=== PATIENT | male | born 1955 | race Caucasian/White ===

== ENCOUNTER 2019-06-29 14:24 | Inpatient (IN) | payer BC ==
[~2019-06-29] VITALS: Ht 177.8 cm; Wt 70.3 kg
[2019-06-29] MEDS ORDERED: ASPIRIN 325 MG TAB PO ONE (14:45)
--- NOTE | 2019-06-29 14:57 | NUR ---
Patient denies the use of home medications.
[2019-06-29 15:08] LABS: BASOPHILS % 0.3 % (0.0-1.0); EOSINOPHILS % 0.2 % (0.0-6.0); HEMATOCRIT 45.3 % (38.2-49.6); HEMOGLOBIN 15.4 g/dL (14.0-18.0); LYMPHOCYTES # (AUTO) 2.7 (1.0-3.2); MEAN CORPUSCULAR HEMOGLOBIN 32.6 pg (28-32); MONOCYTES # (AUTO) 1.2 (0.2-0.8); NEUTROPHILS # (AUTO) 9.3 (2.1-6.9); NEUTROPHILS % 70.2 % (38.7-80.0); PLATELET COUNT 245 x10e3/uL (140-360); RED BLOOD COUNT 4.72 x10e6/uL (4.3-5.7)
[2019-06-29 15:17] LABS: INR 0.88; PROTHROMBIN TIME 12.5 seconds (11.9-14.5)
[2019-06-29 15:18] LABS: PARTIAL THROMBOPLASTIN TIME 27.8 seconds (23.8-35.5)
[2019-06-29 15:28] LABS: ALANINE AMINOTRANSFERASE 15 IU/L (0-55); ALBUMIN/GLOBULIN RATIO 1.3 (0.8-2.0); ALKALINE PHOSPHATASE 76 IU/L (40-150); ANION GAP 14.3 mmol/L (8-16); BLOOD UREA NITROGEN 13 mg/dL (7-26); BUN/CREATININE RATIO 16 (6-25); CALCIUM 9.3 mg/dL (8.4-10.2); CARBON DIOXIDE 27 mmol/L (22-29); CHLORIDE 102 mmol/L (98-107); CREATINE KINASE 83 IU/L (30-200); CREATININE, SERUM 0.79 mg/dL (0.72-1.25); EST GLOMERULAR FILTRATION RATE > 60 ML/MIN (60-); GLUCOSE 98 mg/dL (74-118); POTASSIUM 4.3 mmol/L (3.5-5.1); SODIUM 139 mmol/L (136-145)
[2019-06-29 15:39] LABS: STREPTOCOCCUS GRP A ANTIGEN NEGATIVE (NEGATIVE)
[2019-06-29 15:41] LABS: B-TYPE NATRIURETIC PEPTIDE2 < 10.0 pg/mL (0-100)
[2019-06-29 15:48] LABS: THYROID STIMULATING HORMONE 1.025 uIU/mL (0.350-4.940)
[2019-06-29 15:50] LABS: INFLUENZAE A&B ANTIGEN (RAPID) NEGATIVE (NEGATIVE)
[2019-06-29] MEDS ORDERED: AZITHROMYCIN 500MG/NS 250 ML 250 ML IV SCH (16:30)
[2019-06-29] MEDS ORDERED: LIDOCAINE HCL 1% LOCAL INJ 20 ML VIAL ONE (16:55)
--- NOTE | 2019-06-29 17:00 | Diagnostic Imaging Report ---
EXAMINATION: CHEST SINGLE (PORTABLE) INDICATION: Cough COMPARISON: None FINDINGS: LINES/TUBES:EKG leads overlie the chest. LUNGS:The right lung is mildly hyperinflated. Partial collapse of the left lung. No focal consolidation or pulmonary edema. PLEURA:Large left lateral and basilar pneumothorax. No right pneumothorax. No pleural effusion. MEDIASTINUM:The cardiomediastinal silhouette appears normal in size and shape. BONES/SOFT TISSUES:No acute osseous injury. ABDOMEN:No free air under the diaphragm. IMPRESSION: Large left lateral and basilar pneumothorax. No focal pneumonia or pulmonary edema. The above findings were discussed with Dr. Talbot on 06/29/2019 4:54 PM, who responded indicating that the communication was understood. Patient will be brought to IR for chest tube placement. Signed by: Vivian Byrd MD on 06/29/2019 4:56 PM
[2019-06-29] MEDS: CEFTRIAXONE SOD 1 GM/NS 50 ML 50 ML IV SCH (17:05)
--- NOTE | 2019-06-29 17:10 | NUR ---
consent reviewed and signed for chest tube placement.
[2019-06-29] MEDS ORDERED: MORPHINE SULFATE INJ 4 MG/ML INJ 1ML IV PRN (17:45)
[2019-06-29] MEDS ORDERED: ONDANSETRON HCL INJ 2MG/ML 2ML 2 MG/ML VIAL IV PRN (17:45)
[2019-06-29] MEDS ORDERED: SODIUM CHLORIDE 0.9% 1000ML 1,000 ML IV ONE (17:45)
[2019-06-29] MEDS ORDERED: SODIUM CHLORIDE 0.9% 1000ML 1,000 ML IV STA (17:48)
[2019-06-29] MEDS ORDERED: ZOLPIDEM TARTRATE 5 MG TAB PO PRN (18:00)
[2019-06-29] MEDS: AZITHROMYCIN 500MG/NS 250 ML 250 ML IV SCH (18:30)
[2019-06-29] MEDS: IPRATROPIUM BROMIDE 0.02% 2.5 ML NEB NEB SCH (18:35)
[2019-06-29] MEDS: ALBUTEROL SULF 0.083% NEB SOLN 3 ML NEB NEB SCH ×2 (18:35→23:00)
--- NOTE | 2019-06-29 18:54 | NUR ---
report given to RAGHU Hinkle
--- NOTE | 2019-06-29 19:20 | Diagnostic Imaging Report ---
EXAMINATION: PLEURAL DRAINAGE W/ IMAGING INDICATION: Cough COMPARISON: None FINDINGS: LINES/TUBES:Status post placement of left chest tube. LUNGS:There is interval decrease in size of large left-sided pneumothorax and improvement in a aeration of the left lung. MEDIASTINUM:The cardiomediastinal silhouette appears normal in size and shape. BONES/SOFT TISSUES:No acute osseous injury. ABDOMEN:No free air under the diaphragm. IMPRESSION: Status post placement of left chest tube with interval decrease in size of large left-sided pneumothorax and improvement in aeration of the left lung. Signed by: Isaiah Chen MD on 06/29/2019 7:17 PM
--- NOTE | 2019-06-29 19:30 | Diagnostic Imaging Report ---
EXAM: CT Chest WITHOUT contrast INDICATION: PE PROTOCOL, COUGH, LEFT PNEUMOTHORAX COMPARISON: Chest x-ray dated 06/29/2019. TECHNIQUE: Chest was scanned utilizing a multidetector helical scanner from the lung apex through the level of the adrenal glands without administration of IV contrast. Absence of intravenous contrast decreases sensitivity for detection of lymphadenopathy and vascular pathology. Coronal and sagittal reformations were obtained. Routine protocol was performed. IV CONTRAST: None COMPLICATIONS: None RADIATION DOSE: Total DLP: 353.9 mGy*cm Estimated effective dose: (DLP x 0.014 x size factor) mSv CTDIvol has been reviewed. It is below the limits set by the Radiation Protocol Committee (RPC). FINDINGS: LINES/ TUBES: There is a left-sided chest tube in place. LUNGS AND PLEURA: Compared to prior chest x-ray there is marked decrease in size of left pneumothorax status post placement of left chest tube with a small residual left pneumothorax seen. Subsegmental atelectasis is seen in the lingula. There is linear atelectasis in the left lower lobe. Centrilobular emphysematous changes with multiple blebs are seen in the lungs predominantly upper lobes. There are biapical scarring. Minimal secretions seen in the trachea. HEART AND MEDIASTINUM: The thyroid gland is normal. No mediastinal, hilar or axillary lymphadenopathy. The heart is normal in size.. There is no pericardial effusion. UPPER ABDOMEN: Left upper pole renal cyst. BONES: There are degenerative changes in the thoracic spine. SOFT TISSUES: Left chest wall subcutaneous emphysema IMPRESSION: Status post placement of left chest tube with a small residual left pneumothorax seen. Centrilobular emphysematous changes with multiple blebs are seen in the lungs predominantly in upper lobes. Signed by: Isaiah Chen MD on 06/29/2019 7:27 PM
[2019-06-29 20:00] VITALS: BP 132/67
--- NOTE | 2019-06-29 20:00 | NUR ---
Patient came the unit with a chest tube to the left mid chest. connected to suction.
--- OUTSIDE RECORDS SUMMARY | 2019-06-29 21:14 | XMS REPORT ---
Author Author [facility] Address Unknown Phone Unavailable Care Team Providers Care Design Printer Balloon Name Role Phone AMBER CHAO Unavailable Unavailable Problems This patient has no known problems. Allergies, Adverse Reactions, Alerts This patient has no known allergies or adverse reactions. Medications This patient has no known medications. Results Test Description Test Time Test Comments Text Results Atomic Results Result Comments CT CHEST WO 2019-06-29 19:17:00 [facility] [address] [id number] Patient Name: MITZI SALGADO MR #: [id number] : 1955 Age/Sex: 64/M Req #: [id number] Adm Physician: AMBER CHAO MD Ordered by: WAYNE TOTH MD Report #: [id number] Location: [facility] Room/Bed: [address] [address] Procedure: [id number] CT/CT CHEST WO Exam Date: 06/29/19 Exam Time: 1750 REPORT STATUS: Signed EXAM: CT Chest WITHOUT contrast INDICATION: PE PROTOCOL, COUGH, LEFT PNEUMOTHORAX COMPARISON: Chest x-ray dated 06/29/2019. TECHNIQUE: Chest was scanned utilizing a multidetector helical scanner from the lung apex through the level of the adrenal glands without administration of IV contrast. Absence of intravenous contrast decreases sensitivity for detection of lymphadenopathy and vascular pathology. Coronal and sagittal reformations were obtained. Routine protocol was performed. IV CONTRAST: None COMPLICATIONS: None RADIATION DOSE: Total DLP: 353.9 mGy*cm Estimated effective dose: (DLP x 0.014 x size factor) mSv CTDIvol has been reviewed. It is below the limits set by the Radiation Protocol Committee (RPC). FINDINGS: LINES/ TUBES: There is a left-sided chest tube in place. LUNGS AND PLEURA: Compared to prior chest x-ray there is marked decrease in size of left pneumothorax status post placement of left chest tube with a small residual left pneumothorax seen. Subsegmental atelectasis is seen in the lingula. There is linear atelectasis in the left lower lobe. Centrilobular emphysematous changes with multiple blebs are seen in the lungs predominantly upper lobes. There are biapical scarring. Minimal secretions seen in the trachea. HEART AND MEDIASTINUM: The thyroid gland is normal. No mediastinal, hilar or axillary lymphadenopathy. The heart is normal in size.. There is no pericardial effusion. UPPER ABDOMEN: Left upper pole renal cyst. BONES: There are degenerative changes in the thoracic spine. SOFT TISSUES: Left chest wall subcutaneous emphysema IMPRESSION: Status post placement of left chest tube with a small residual left pneumothorax seen. Centrilobular emphysematous changes with multiple blebs are seen in the lungs predominantly in upper lobes. Signed by: Isaiah Silvestre MD on 06/29/2019 7:27 PM Dictated By: ISAIAH SILVESTRE MD 26 Transcribed By: KENDRA on 06/29/191926 COPY TO: WAYNE TOTH MD PLEURAL DRAINAGE W/ IMAGING 2019-06-29 19:13:00 [address] [address] Patient Name: MITZI SALGADO MR #: [id number] : 1955 Age/Sex: 64/M Req #: [id number] Adm Physician: AMBER CHAO MD Ordered by: WAYNE TOTH MD Report #: [id number] Location: [facility] Room/Bed: [address] [address] Procedure: [id number] IR/PLEURAL DRAINAGE W/ IMAGING Exam Date: Exam Time: REPORT STATUS: Signed EXAMINATION: PLEURAL DRAINAGE W/ IMAGING INDICATION: Cough COMPARISON: None FINDINGS: LINES/TUBES:Status post placement of left chest tube. LUNGS:There is interval decrease in size of large left-sided pneumothorax and improvement in a aeration of the left lung. MEDIASTINUM:The cardiomediastinal silhouette appears normal in size and shape. BONES/SOFT TISSUES:No acute osseous injury. ABDOMEN:No free air under the diaphragm. IMPRESSION: Status post placement of left chest tube with interval decrease in size of large left-sided pneumothorax and improvement in aeration of the left lung. Signed by: Isaiah Silvestre MD on 06/29/2019 7:17 PM Dictated By: ISAIAH SILVESTRE MD 16 Transcribed By: KENDRA on 06/29/191916 COPY TO: WAYNE TOTH MD CHEST SINGLE (PORTABLE) 2019-06-29 16:54:00 [address] [address] Patient Name: MITZI SALGADO MR #: [id number] : 1955 Age/Sex: 64/M Req #: [id number] Adm Physician: Ordered by: MELANIA DENNIS LEATHER CARVER Report #: [id number] Location: ER Room/Bed: Procedure: [id number] DX/CHEST SINGLE (PORTABLE) Exam Date: 06/29/19 Exam Time: 1620 REPORT STATUS: Signed EXAMINATION: CHEST SINGLE (PORTABLE) INDICA TION: Cough COMPARISON: None FINDINGS: LINES/TUBES:EKG leads overlie the chest. LUNGS:The right lung is mildly hyperinflated. Partial collapse of the left lung. No focal consolidation or pulmonary edema. PLEURA:Large left lateral and basilar pneumothorax. No right pneumothorax. No pleural effusion. MEDIASTINUM:The cardiomediastinal silhouette appears normal in size and shape. BONES/SOFT TISSUES:No acute osseous injury. ABDOMEN:No free air under the diaphragm. IMPRESSION: Large left lateral and basilar pneumothorax. No focal pneumonia or pulmonary edema. The above findings were discussed with Dr. Toth on 06/29/2019 4:54 PM, who responded indicating that the communication was understood. Patient will be brought to IR for chest tube placement. Signed by: Tomy Figueroa MD on 06/29/2019 4:56 PM Dictated By: TOMY FIGUEROA MD 55 Transcribed By: KENDRA on 06/29/191655 COPY TO: MELANIA DENNIS NP
--- NOTE | 2019-06-29 23:24 | Diagnostic Imaging Report ---
EXAMINATION: CHEST SINGLE (PORTABLE) COMPARISON: CT chest 06/29/2019, chest x-ray 1802 hours INDICATION: ^[id number] ^2245 ^POST CHEST TUBE DISCUSSION: Frontal view of the chest obtained at 2254 hours. HEART AND MEDIASTINUM: The cardiomediastinal silhouette is unremarkable. LINES: Pigtail catheter in the base of the left chest is now located at the left ventricular apex. LUNGS: Diffuse hyperinflation consistent with emphysema. No pneumonia or pulmonary edema. PLEURA: Left anterior and basilar pneumothorax identified on CT is not visible by x-ray. BONES AND SOFT TISSUES: Healed right rib fractures. Subcutaneous emphysema in the lateral inferior left chest wall at chest tube insertion site. IMPRESSION: 1. Retraction of left chest tube to the left ventricular apex. No pneumothorax on this image. 2. Stable hyperinflation. No new cardiothoracic findings. Signed by: Dr. Fabiana Abdul MD on 06/29/2019 11:21 PM
[2019-06-30] VITALS (7 sets, daily range): BP systolic 109–136; BP diastolic 57–67
[2019-06-30 00:15] LABS: CREATINE KINASE 94 IU/L (30-200)
[2019-06-30] MEDS: IPRATROPIUM BROMIDE 0.02% 2.5 ML NEB NEB SCH ×4 (02:35→19:10)
[2019-06-30] MEDS: ALBUTEROL SULF 0.083% NEB SOLN 3 ML NEB NEB SCH ×6 (02:35→23:00)
--- NOTE | 2019-06-30 03:22 | Diagnostic Imaging Report ---
EXAMINATION: CHEST SINGLE (PORTABLE) COMPARISON: Chest x-ray 06/29/2019 INDICATION: Chest tube ^[id number] ^0256 ^POST CHEST TUBE DISCUSSION: Frontal view of the chest obtained at 0248 hours. HEART AND MEDIASTINUM: The cardiomediastinal silhouette is unremarkable. LINES: Pigtail catheter in the inferior left chest is now located along the lateral chest wall. LUNGS: Stable hyperinflation. No pneumonia or pulmonary edema. PLEURA: No pleural effusion or pneumothorax. BONES AND SOFT TISSUES: Stable with subcutaneous emphysema at the chest tube insertion site. IMPRESSION: Pigtail catheter now lies in the lateral left chest. No pneumothorax. Signed by: Dr. Fabiana Abdul MD on 06/30/2019 3:18 AM
[2019-06-30] MEDS ORDERED: POTASSIUM CHLO10 ME1 PO (05:29)
[2019-06-30] MEDS ORDERED: LASIX20 MG PO (05:29)
[2019-06-30 06:12] LABS: BASOPHILS % 0.2 % (0.0-1.0); EOSINOPHILS % 0.2 % (0.0-6.0); HEMATOCRIT 37.4 % (38.2-49.6); HEMOGLOBIN 12.6 g/dL (14.0-18.0); LYMPHOCYTES # (AUTO) 2.1 (1.0-3.2); LYMPHOCYTES % 22.8 % (18.0-39.1); MEAN CORPUSCULAR HEMOGLOBIN 32.2 pg (28-32); MEAN CORPUSCULAR HGB CONC 33.7 g/dL (31-35); MEAN CORPUSCULAR VOLUME 95.7 fL (81-99); MONOCYTES # (AUTO) 0.8 (0.2-0.8); MONOCYTES % 8.8 % (4.4-11.3); NEUTROPHILS # (AUTO) 6.3 (2.1-6.9); NEUTROPHILS % 67.7 % (38.7-80.0); PLATELET COUNT 208 x10e3/uL (140-360); RED BLOOD COUNT 3.91 x10e6/uL (4.3-5.7)
[2019-06-30] MEDS ORDERED: SODIUM CHLORIDE 0.9% 1000ML 1,000 ML ONE (06:13)
[2019-06-30 06:32] LABS: CREATINE KINASE 87 IU/L (30-200)
[2019-06-30 06:52] LABS: ALANINE AMINOTRANSFERASE 12 IU/L (0-55); ALBUMIN/GLOBULIN RATIO 1.2 (0.8-2.0); ALKALINE PHOSPHATASE 53 IU/L (40-150); ANION GAP 10.7 mmol/L (8-16); BLOOD UREA NITROGEN 13 mg/dL (7-26); BUN/CREATININE RATIO 19 (6-25); CALCIUM 8.3 mg/dL (8.4-10.2); CARBON DIOXIDE 25 mmol/L (22-29); CHLORIDE 108 mmol/L (98-107); EST GLOMERULAR FILTRATION RATE > 60 ML/MIN (60-); GLUCOSE 94 mg/dL (74-118); POTASSIUM 3.7 mmol/L (3.5-5.1); SODIUM 140 mmol/L (136-145)
--- NOTE | 2019-06-30 07:03 | Diagnostic Imaging Report ---
EXAMINATION: CHEST SINGLE (PORTABLE) COMPARISON: Chest x-ray 0248 hours, CT chest 06/29/2019 INDICATION: ^POST CHEST TUBE DISCUSSION: Frontal view of the chest obtained at 0630 hours. HEART AND MEDIASTINUM: The cardiomediastinal silhouette is stable. LINES: Pigtail catheter in the lateral left chest is redemonstrated. LUNGS: Diffuse hyperinflation. No pneumonia or pulmonary edema. PLEURA: No pleural effusion. Poorly defined lucency in the base of the left chest is suggestive of anterior and inferior pneumothorax identified on CT. BONES AND SOFT TISSUES: No focal osseous lesion. Stable subcutaneous emphysema in the left chest wall. IMPRESSION: No significant change in position of the pigtail catheter in the lateral left chest. Suspected pneumothorax in the base of the left chest. Signed by: Dr. Fabiana Abdul MD on 06/30/2019 6:59 AM
--- NOTE | 2019-06-30 07:17 | NUR ---
RECEIVED REPORT FROM CUTTING MACHINE TENDER NURSE, PATIENT IS LAYING IN BED, A&OX3, NO DISTRESS NOTED, LEFT CHEST TUBE ON FLOOR, TELEMETRY BOX #24, LEFT AC IV 18G WITH NS @100 MLS /HR INFUSING. BED IS LOW AND LOCKED, SIDE RAIL UPX2, CALL LIGHT WITHIN REACH.
--- NOTE | 2019-06-30 09:10 | Consultation ---
DATE OF CONSULTATION: Pulmonary Critical Care Consultation REFERRING PHYSICIAN: Dr. Bharat Talbot. HISTORY OF PRESENT ILLNESS: The patient is a 64-year-old man. He has a history of benign prostatic hypertrophy with prior prostate surgery, but denies any preexisting respiratory problems. He quit smoking 30 years ago and denies any baseline dyspnea on exertion. He does not use any inhalers at home. About a week ago, he had a dry cough. Yesterday, he noted chest discomfort and difficulty breathing that was fairly abrupt in onset. He denies fever. He did not have any nausea or vomiting. He came to the ER and was found to have a large left pneumothorax. He had a chest tube placed and reports improvement in his symptoms. PAST SURGICAL HISTORY: Prostate surgery. PAST MEDICAL HISTORY: 1. No prior heart disease. 2. No prior history of asthma. 3. No prior history of tuberculosis or other respiratory infections. SOCIAL HISTORY: The patient quit smoking 30 years ago. He still smokes cigars. He is not a drinker. FAMILY HISTORY: Family history is noncontributory. ALLERGIES: THE PATIENT IS ALLERGIC TO IV CONTRAST. REVIEW OF SYSTEMS: The patient denies fever. He has no headaches. He has some cough last week. He is not having any chest pain. He did have trouble breathing, but has improved with treatment of the pneumothorax. He has no abdominal pain. There is no nausea or vomiting. He has no leg edema. PHYSICAL EXAMINATION: VITAL SIGNS: The patient is afebrile. The blood pressure is 109/57 with a saturation 99%. HEENT: No facial swelling or erythema. Oropharynx is normal. LYMPHATIC: No submandibular, cervical, or supraclavicular adenopathy. CARDIAC: Regular rate and rhythm with normal S1, S2. LUNGS: Auscultation of lungs shows clear breath sounds bilaterally. There is no wheezing. Chest tube shows a good respiratory variation. There is no air leak. He is currently on -20 mL of water pressure. EXTREMITIES: There is no leg edema. NEUROLOGICAL: Shows no focal abnormalities. RADIOGRAPHIC DATA: CT scan of the chest shows centrilobular emphysematous changes with multiple blebs, predominantly in the upper lobes. There is also a small residual left pneumothorax. Chest x-ray this morning shows a possible loculated area of pneumothorax at the left lower thorax. The pigtail is in good position. LABORATORY DATA: CBC is within normal limits. BUN to creatinine is normal. Electrolytes are normal. IMPRESSION: 1. Bullous emphysema and COPD. 2. Pneumothorax of the left chest secondary to bullous emphysema. 3. Benign prostatic hypertrophy. PLAN: 1. Continue thoracostomy with chest tube set at -20 mL. 2. Switch the patient to water-seal later today and repeat the chest x-ray tomorrow morning. 3. If the lung remains re-expanded, the patient can probably be discharged home safely on Tuesday morning. 4. Because this is a secondary pneumothorax with pre-existing bullous emphysema, the patient may benefit from pleurodesis or video-assisted thoracoscopy with stapling of the apical blebs. 5. There is a risk of a recurrent pneumothorax because of his underlying bullous emphysema. Addy Crawford MD [facility]/SHELBIL /[id number]
--- NOTE | 2019-06-30 11:28 | Diagnostic Imaging Report ---
EXAMINATION: CHEST SINGLE (PORTABLE) COMPARISON: Chest x-ray 06/30/2019 at 6:[address] chest 06/29/2019 INDICATION: POST CHEST TUBE DISCUSSION: HEART AND MEDIASTINUM: The cardiomediastinal silhouette is stable. LINES: Pigtail catheter in the lateral left chest is redemonstrated. LUNGS: Lungs are hyperinflated. No pneumonia or pulmonary edema. PLEURA: No pleural effusion. The previously seen small left anterior pneumothorax on CT is no longer seen on this exam. BONES AND SOFT TISSUES: No focal osseous lesion. Stable subcutaneous emphysema in the left chest wall. IMPRESSION: The previously seen small left anterior pneumothorax on CT is no longer seen on this exam Signed by: Isaiah Chen MD on 06/30/2019 11:24 AM
[2019-06-30] MEDS ORDERED: FUROSEMIDE INJ 10 MG/ML 2 ML VIAL IV NR (12:15)
[2019-06-30] MEDS ORDERED: POTASSIUM CHLORIDE 10MEQ EA PO NR (12:15)
--- NOTE | 2019-06-30 16:09 | Diagnostic Imaging Report ---
EXAMINATION: CHEST 2 VIEWS COMPARISON: Chest x-ray 06/30/2019 at 10:[address] chest 06/29/2019 INDICATION: pneumothorax DISCUSSION: HEART AND MEDIASTINUM: The cardiomediastinal silhouette is stable. LINES: Pigtail catheter in the lateral left chest is redemonstrated. LUNGS: Lungs are hyperinflated. No pneumonia or pulmonary edema. PLEURA: No pleural effusion. The previously seen small left anterior pneumothorax on CT is no longer seen on this exam. BONES AND SOFT TISSUES: No focal osseous lesion. Improved subcutaneous emphysema in the left chest wall. IMPRESSION: The previously seen small left anterior pneumothorax on CT is no longer seen on this exam Improved subcutaneous emphysema in the left chest wall. Signed by: Isaiah Chen MD on 06/30/2019 4:06 PM
[2019-06-30] MEDS: CEFTRIAXONE SOD 1 GM/NS 50 ML 50 ML IV SCH (16:57)
[2019-06-30] MEDS: AZITHROMYCIN 500MG/NS 250 ML 250 ML IV SCH (17:47)
--- NOTE | 2019-06-30 18:22 | NUR ---
LEFT FOREARM IV 20G INFILTRATED. REMOVED LEFT FA IV, APPLIED 2X2 AND TAPE. NEW IV START TO RIGHT FA 20G.
--- NOTE | 2019-06-30 19:06 | NUR ---
GAVE REPORT TO ONCOMING NURSE, NO DISTRESS NOTED, BED LOW AND LOCKED, CALL LIGHT WITHIN REACH.
--- NOTE | 2019-06-30 19:45 | NUR ---
Received patient from day nurse, patient is stable. safety and fall precautions maintained at this time: bed in lowest position and looked, needed items beside bed and call bright placed close to patient, patient is currently stable will continue to monitor
[2019-07-01 00:49] VITALS: BP 132/62
[2019-07-01] MEDS: IPRATROPIUM BROMIDE 0.02% 2.5 ML NEB NEB SCH ×3 (01:30→15:13)
[2019-07-01] MEDS: ALBUTEROL SULF 0.083% NEB SOLN 3 ML NEB NEB SCH ×4 (01:30→15:13)
[2019-07-01 05:35] VITALS: BP 128/69
[2019-07-01 05:52] LABS: BASOPHILS % 0.3 % (0.0-1.0); EOSINOPHILS % 0.5 % (0.0-6.0); HEMATOCRIT 35.6 % (38.2-49.6); HEMOGLOBIN 11.9 g/dL (14.0-18.0); LYMPHOCYTES # (AUTO) 2.1 (1.0-3.2); LYMPHOCYTES % 28.8 % (18.0-39.1); MEAN CORPUSCULAR HEMOGLOBIN 32.2 pg (28-32); MEAN CORPUSCULAR HGB CONC 33.4 g/dL (31-35); MEAN CORPUSCULAR VOLUME 96.2 fL (81-99); MONOCYTES # (AUTO) 0.8 (0.2-0.8); MONOCYTES % 11.1 % (4.4-11.3); NEUTROPHILS # (AUTO) 4.3 (2.1-6.9); PLATELET COUNT 195 x10e3/uL (140-360)
[2019-07-01 06:06] LABS: ANION GAP 10.4 mmol/L (8-16); BLOOD UREA NITROGEN 11 mg/dL (7-26); BUN/CREATININE RATIO 16 (6-25); CALCIUM 8.7 mg/dL (8.4-10.2); CARBON DIOXIDE 28 mmol/L (22-29); CHLORIDE 106 mmol/L (98-107); CREATININE, SERUM 0.67 mg/dL (0.72-1.25); EST GLOMERULAR FILTRATION RATE > 60 ML/MIN (60-); GLUCOSE 98 mg/dL (74-118); POTASSIUM 3.4 mmol/L (3.5-5.1); SODIUM 141 mmol/L (136-145)
--- NOTE | 2019-07-01 06:52 | NUR ---
patient endorsed to next shift for continuity of care.
--- NOTE | 2019-07-01 07:22 | NUR ---
RECEIVED REPORT FROM DIAMOND SAWER NURSE, PATIENT A&OX3, NO DISTRESS NOTED, RT FA IV 20G SALINE LOCKED, LEFT CHEST TUBE CONNECTED TO WALL SUCTION, CHEST TUBE DRAINAGE MARKED AND DATED. BED IS LOW AND LOCKED, SIDE RAILS UPX2, WALKER, URINAL AND CALL LIGHT WITHIN REACH.
[2019-07-01 07:31] VITALS: BP_SYST 128; BP_DIAS 69; BP_DIAS 89
[2019-07-01 08:42] VITALS: BP 128/89
--- NOTE | 2019-07-01 10:24 | Progress Note ---
DATE: SUBJECTIVE: The patient feels better. He has no chest pain or dyspnea. There is no air leak when he coughs. Repeat chest x-ray shows the lung is re-expanded. PHYSICAL EXAMINATION: VITAL SIGNS: Stable. The blood pressure is 128/70, saturation is 99% and the pulse is 78, and respiratory rate is 20. HEENT: Shows no facial swelling or erythema. CARDIAC: Reveals regular rate and rhythm with normal S1, S2. LUNGS: Auscultation of lungs reveals clear breath sounds bilaterally. There is no wheezing. ABDOMEN: Soft, nontender. There is no rebound or guarding. EXTREMITIES: Show no leg edema or calf tenderness. IMPRESSION: 1. Pneumothorax, secondary to bullous emphysema. 2. Bullous emphysema and chronic obstructive pulmonary disease. 3. Benign prostatic hypertrophy. PLAN: 1. Switch chest tube to water seal. Repeat chest x-ray in 6 hours. If the lung remains re- expanded, we will remove the chest tube. 2. Re-evaluation in 1 week as an outpatient. MD JENNIFER Rice/SHELBIL /[id number]
[2019-07-01] MEDS ORDERED: PROAIR HFA INH8.5 GM INH (11:13)
[2019-07-01] MEDS ORDERED: CEFDINIR300 MG PO (11:13)
[2019-07-01] MEDS ORDERED: ZITHROMAX500 MG PO (11:13)
[2019-07-01] MEDS ORDERED: POTASSIUM CHLORIDE 20 MEQ TAB CR PO NR ×2 (11:30→14:30)
[2019-07-01 12:20] VITALS: BP 145/71
--- NOTE | 2019-07-01 14:00 | NUR ---
PT LIVES AT HOME WITH HIS , IN A HOUSE IN [place] PATIENT IS DISABLED EMERGENCY CONTACT: : [facility] [phone] PCP: DR. CECI ESCOBAR DC PLAN: DISCHARGE HOME WITH , PENDING MEDICAL OUTCOME. MAY REQUIRE HOME HEALTH
[2019-07-01] MEDS: CEFTRIAXONE SOD 1 GM/NS 50 ML 50 ML IV SCH (15:37)
--- NOTE | 2019-07-01 16:47 | Diagnostic Imaging Report ---
EXAMINATION: CHEST 2 VIEWS INDICATION: ^pneumothorax ^[id number] ^1610 COMPARISON: 06/30/2019 FINDINGS: PA and lateral views TUBES and LINES: Left lower lung pigtail catheter, unchanged. Multiple external wires overlying the left mid to lower lung field. LUNGS: Lungs are hyperinflated. No definite focal consolidation. Mild biapical scarring. PLEURA: No pleural effusion. No visible pneumothorax. HEART AND MEDIASTINUM: The cardiomediastinal silhouette is unremarkable. BONES AND SOFT TISSUES: No acute osseous lesion. Lateral left lower chest wall emphysema. UPPER ABDOMEN: No free air under the diaphragm. IMPRESSION: No definite visible pneumothorax. Hyperinflated lungs, suggestive of emphysematous changes. Signed by: Dr. Homero Fowler MD on 07/01/2019 4:42 PM
[2019-07-01 17:13] VITALS: BP 139/69
[2019-07-01] MEDS: AZITHROMYCIN 500MG/NS 250 ML 250 ML IV SCH (17:13)
--- NOTE | 2019-07-01 18:16 | NUR ---
DR. VÁZQUEZ AT BEDSIDE, CHEST TUBE REMOVED BY DR. VÁZQUEZ. VASELINE GAUZE, 4X4, MICROFOAM TAPE PLACED AT CHEST TUBE INSERTION SITE. NO DISTRESS NOTED. PER DR. VÁZQUEZ PT CAN BE D/C HOME FROM HIS STANDPOINT.
--- NOTE | 2019-07-01 18:53 | NUR ---
EDUCATED PATIENT REGARDING D/C INSTRUCTIONS AND MEDICATIONS. PT TO F/U WITH DR. SANTANA IN ONE WEEK, F/U WITH PCP IN ONE WEEK. NO DISTRESS NOTED. DRESSING TO LEFT LUNG C/D/I. PATIENT VERBALIZED UNDERSTANDING.
--- NOTE | 2019-07-01 18:55 | NUR ---
IV TO RT FA 20G REMOVED, 2X2 APPLIED WITH TAPE. NO BLEEDING OR BRUISING NOTED.
--- NOTE | 2019-07-01 19:06 | NUR ---
PATIENT WHEELED OUT BY STAFF TO D/C HOME VIA PRIVATE AUTO, NO DISTRESS NOTED, ALL BELONGINGS WITH PATIENT.
== END 2019-07-01 19:01 | disposition home or self-care (01) | DRG 191 ==
LOC: ER 14:24 → ERHOLD 17:44 → MED/SURG2 21:08
PROVIDERS: ADMIT Internal Medicine; ATTEND Internal Medicine
PROC: 0W9B30Z Drainage of Left Pleural Cavity with Drainage Device, Percutaneous Approach (ICD-10-PCS; principal; 2019-06-29)
DX: J43.9 Emphysema, unspecified (principal); J93.83 Other pneumothorax; N40.0 Benign prostatic hyperplasia without lower urinary tract symptoms; Z87.891 Personal history of nicotine dependence
CPT/HCPCS: 32557; 36415; 71045; 71046; 71250; 74470; 80048; 80053; 82103; 82550; 82553; 83518; 83605; 83735; 83880; 84443; 84484; 85025; 85610; 85730; 87040; 87070; 87400; 93005; 93306; 93970; 94640; 97139; 99285; C1729; C1769; J0456; J0696; J1940; J2001; J2270; J7030

== ENCOUNTER 2019-07-03 11:39 | Inpatient (IN) | payer BC, MEDICARE ==
[~2019-07-03] VITALS: Ht 175.3 cm; Wt 68.0 kg
[~2019-07-03 11:39] MED LIST: CEFDINIR300 MG PO; LASIX20 MG PO; POTASSIUM CHLO10 ME1 PO; PROAIR HFA INH8.5 GM INH; ZITHROMAX500 MG PO
[2019-07-03 14:49] VITALS: BP 135/97
--- NOTE | 2019-07-03 15:40 | NUR ---
Patient arrived to the unit at 1330. Patient was a direct admission from Dr. Crawford's office with the diagnosis of recurrent pneumothorax. Patient just had a chest tube removed on Tuesday and said he felt SOB begin last night. Patient was self treating with cough syrup at home. Patient is AOx3, walks with walker, has an unsteady gait with walker, and does all ADL's himself. Patient does use a urinal at bedside and states he wear a brief for "comfort measures". Patient has bilateral feet and ankle swelling, small scab on the left lower leg from his puppy, and no other skin issues. Patient states he has had the swelling in his feet and ankles for "years" and has had multiple cardiac scans done and showed nothing. Patient also staed he has MS and has recurrent severe migraines that is unrelieved with any medications. Patient's medications were reviewed. Patient signed his consent for a placement of a chest tube and had no questions or issues at this time. Patient left for placement of chest tube at 1524. Will continue to monitor.
--- NOTE | 2019-07-03 15:45 | Diagnostic Imaging Report ---
EXAMINATION: CHEST SINGLE (PORTABLE) INDICATION: Pneumothorax COMPARISON: Chest radiograph 07/01/2019 FINDINGS: LINES/TUBES:The previously placed left chest tube was removed. LUNGS:The right lung is hyperinflated. Left lung is extensively collapsed. PLEURA:Recurrence of large left lateral and basilar pneumothorax following chest tube removal. MEDIASTINUM:The cardiomediastinal silhouette appears normal in size and shape. BONES/SOFT TISSUES:No acute osseous injury. ABDOMEN:No free air under the diaphragm. IMPRESSION: Recurrent large left pneumothorax status post chest tube removal. Signed by: Vivian Byrd MD on 07/03/2019 3:42 PM
[2019-07-03 15:47] VITALS: BP 135/97
--- NOTE | 2019-07-03 17:01 | NUR ---
Patient returned from chest tube placement at 1650. Patient came back with a burkinan chest tube at 20cm suction continuous. Patient is AOx3, and arrived via stretcher. Patient moved from stretcher to bed with ease and had no issues or complaints will continue to monitor.
[2019-07-03] MEDS ORDERED: ACETAMINOPHEN 325 MG TAB PO PRN (19:00)
[2019-07-03] MEDS ORDERED: ONDANSETRON HCL INJ 2MG/ML 2ML 2 MG/ML VIAL IV PRN (19:00)
[2019-07-03] MEDS ORDERED: MELATONIN 5 MG TABLET PO PRN (19:00)
[2019-07-03] MEDS ORDERED: HYDRALAZINE HCL 20 MG/ML VIAL IV PRN (19:00)
[2019-07-03 20:00] VITALS: BP 133/77
--- NOTE | 2019-07-03 20:10 | Diagnostic Imaging Report ---
EXAM: CT Chest WITHOUT contrast 07/03/2019 1:25 PM INDICATION: ^pneumothorax ^[id number] ^[id number] COMPARISON: Chest radiograph 07/03/2019 and subsequent postprocedure x-ray 07/03/2019 TECHNIQUE: Chest was scanned utilizing a multidetector helical scanner from the lung apex through the level of the adrenal glands without administration of IV contrast. Absence of intravenous contrast decreases sensitivity for detection of lymphadenopathy and vascular pathology. Coronal and sagittal reformations were obtained. Routine protocol was performed. IV CONTRAST: None COMPLICATIONS: None RADIATION DOSE: Total DLP: 502.8 mGy*cm Estimated effective dose: (DLP x 0.015 x size factor) mSv CTDIvol has been reviewed. It is below the limits set by the Radiation Protocol Committee (RPC). FINDINGS: LINES/ TUBES: Left lower hemithorax pigtail catheter in place. There are moderate amount of subcutaneous air in the anterior left chest wall surrounding the chest tube. The pigtail catheter appears to enter through the major fissure, then appears to have an intraparenchymal course with the tip terminating in the left lower pleural space, just above the diaphragm. LUNGS AND AIRWAYS: Moderate bilateral centrilobular and paraseptal emphysema. Multiple bilateral apical bullae measuring up to 3.5 cm on the left Mild bronchiectasis with peribronchial wall thickening in the lingula on series 2, image 96 and multifocal areas of scarring in the left lower lobe may reflect sequela of prior infection. Mild bilateral central peribronchial wall thickening suggestive of small airway disease. Airways are normal. PLEURA: Interval resolution of the pneumothorax. No pleural effusions. HEART AND MEDIASTINUM: The thyroid gland is normal. No mediastinal, hilar or axillary lymphadenopathy. The heart is normal in size. There is no pericardial effusion. The thoracic aorta and pulmonary arteries are unremarkable. UPPER ABDOMEN: 2.2 cm low-attenuation left renal cyst. BONES: Moderate multilevel degenerative changes of the thoracic spine. SOFT TISSUES: Unremarkable. IMPRESSION: Interval placement of a left lower hemithorax pigtail catheter with resolution of the pneumothorax. Pigtail catheter entrance and course as described above. Consider prior consolidation. Moderate bilateral emphysema with multiple bilateral apical bullae. Signed by: Dr. Annabel Urena M.D. on 07/03/2019 8:06 PM
--- NOTE | 2019-07-03 22:12 | Consultation ---
DATE OF CONSULTATION: 07/03/2019 REASON FOR CONSULT: Recurrent left pneumothorax; requested by Dr. Brooke Crawford. Button Broacher is Dr. Pacheco. HISTORY: This is a 64-year-old man with multiple sclerosis, who developed acute chest pain about one week ago. He went to see his primary care physician. Chest x-ray showed a large left pneumothorax. He came to [facility] where a chest tube was inserted. The lung reinflated. He was discharged after the chest tube had been discontinued in several days. He did well initially at home, but today, he had recurrence of the same left-sided chest discomfort as well as dyspnea. On presentation to the emergency room, recurrent pneumothorax was confirmed by chest x-ray. A new chest tube has been inserted. The lung has completely inflated on repeat chest x-ray. A CT scan of the chest shows diffuse emphysematous disease of the lungs bilaterally. The pneumothorax is resolved. There are no parenchymal densities reported. The patient has a long history of 1-2 pack per day smoking. No history of previous pneumonias. He has never been hospitalized. The patient has history of multiple sclerosis. He has not been taking any medications because he feels they have not been helping him. He apparently uses a walker. No history of myocardial infarction, stroke, PND, or orthopnea. PAST MEDICAL HISTORY: Positive for multiple sclerosis. MEDICATIONS: At home, albuterol, Zithromax, Lasix, and potassium chloride. ALLERGIES: IV CONTRAST AND POLLEN. SOCIAL HISTORY: Positive for 1-2 pack per day smoking for many years. Says he quit last Tuesday. No IV drugs. FAMILY HISTORY: Negative for pneumothoraces. Negative for multiple sclerosis. REVIEW OF SYSTEMS: GENERAL: Negative for fatigue and malaise. NEUROLOGIC: Negative for focal weakness in extremities or dysarthria. HEENT: Negative for decreased vision or decreased hearing. CARDIAC: Negative for chest pain, palpitation. PULMONARY: Positive as above. GI: Negative for change in bowel habits, diarrhea or constipation. : Negative for hematuria or dysuria. ENDOCRINE: Negative for polyuria, polydipsia. VASCULAR: Negative for claudication. SKIN: Negative for rashes or itching. HEMATOLOGIC: Negative for clotting or bleeding. INFECTIOUS: Negative for fevers or sweating. PSYCHIATRIC: Negative for depression or anxiety. PHYSICAL EXAMINATION: GENERAL: A thin man sitting up in bed, in no apparent distress. VITAL SIGNS: Blood pressure 130/70, pulse 80 and regular, respirations 16 and unlabored. NECK: Supple and nontender. No JVD. CARDIAC: Shows a regular rate and rhythm. There is a normal S1 and S2. There is no S3 or S4. LUNGS: Have some scattered wheezes, but are otherwise clear. A thin chest tube that was placed in the IR was present in the left chest. There is no air leak identified. ABDOMEN: Scaphoid, benign. Good bowel sounds. No hepatosplenomegaly. BACK: No CVA tenderness. No muscular spasm. EXTREMITIES: No cyanosis, clubbing, or edema. VASCULAR: Carotids 2+/2+ bilaterally. No carotid bruits. Radials and femorals 2+/2+ bilaterally. SKIN: No rashes or nonhealing ulcers. MUSCULOSKELETAL: Range of motion at all joints. No joint swelling. NEUROLOGIC: Cranial nerves II through XII intact. Extremities have 4/5 strength bilaterally. LYMPHATIC: Negative for cervical, clavicular, or femoral adenopathy. LABORATORIES: White count 7.5, hemoglobin 11.9, hematocrit 35.6, platelet count 195,000. IMAGING: Chest x-ray and CT scan images are reviewed and are as above. IMPRESSION: Recurrent pneumothorax. Intervention on the pneumothorax is now warranted. I described thoracoscopic/possible open surgery to the patient and his . They are thinking things over. Thank you very much for asking me to see this nice man. MD ELISE Siddiqi/MODL /[id number]
[2019-07-03 22:21] LABS: BASOPHILS % 0.3 % (0.0-1.0); EOSINOPHILS % 0.3 % (0.0-6.0); HEMATOCRIT 41.6 % (38.2-49.6); HEMOGLOBIN 14.4 g/dL (14.0-18.0); LYMPHOCYTES # (AUTO) 2.3 (1.0-3.2); LYMPHOCYTES % 14.4 % (18.0-39.1); MEAN CORPUSCULAR HEMOGLOBIN 32.3 pg (28-32); MEAN CORPUSCULAR HGB CONC 34.6 g/dL (31-35); MEAN CORPUSCULAR VOLUME 93.3 fL (81-99); MONOCYTES # (AUTO) 1.5 (0.2-0.8); MONOCYTES % 9.7 % (4.4-11.3); NEUTROPHILS # (AUTO) 11.8 (2.1-6.9); PLATELET COUNT 242 x10e3/uL (140-360); RED BLOOD COUNT 4.46 x10e6/uL (4.3-5.7); RED CELL DISTRIBUTION WIDTH 12.8 % (11.7-14.4)
[2019-07-03 22:40] LABS: ALANINE AMINOTRANSFERASE 17 IU/L (0-55); ALBUMIN 3.5 g/dL (3.5-5.0); ALBUMIN/GLOBULIN RATIO 1.2 (0.8-2.0); ALKALINE PHOSPHATASE 65 IU/L (40-150); ANION GAP 12.9 mmol/L (8-16); CALCIUM 9.1 mg/dL (8.4-10.2); CARBON DIOXIDE 24 mmol/L (22-29); CHLORIDE 103 mmol/L (98-107); GLUCOSE 141 mg/dL (74-118); POTASSIUM 3.9 mmol/L (3.5-5.1); SODIUM 136 mmol/L (136-145)
[2019-07-03 23:18] LABS: BLOOD UREA NITROGEN 15 mg/dL (7-26); BUN/CREATININE RATIO 22 (6-25); CREATININE, SERUM 0.69 mg/dL (0.72-1.25); EST GLOMERULAR FILTRATION RATE > 60 ML/MIN (60-)
[2019-07-03] MEDS ORDERED: SODIUM CHLORIDE 0.9% 250ML 250 ML ONE (23:26)
[2019-07-03] MEDS: AZITHROMYCIN 500MG/NS 250 ML 250 ML IV SCH (23:28)
[2019-07-04] VITALS (7 sets, daily range): BP systolic 120–130; BP diastolic 57–75
--- NOTE | 2019-07-04 | NUR ---
LEFT FOREARM PIV WITH EVIDENCE OF INFILTRATION, NEW IV START 22G TO RIGHT FOREARM Addendum: 07/04/19 at 0053 by Alondra Horowitz RN Amended: Links added.
[2019-07-04 06:24] LABS: BASOPHILS % 0.4 % (0.0-1.0); EOSINOPHILS # (AUTO) 0.1 (0.0-0.4); HEMATOCRIT 43.9 % (38.2-49.6); HEMOGLOBIN 14.7 g/dL (14.0-18.0); LYMPHOCYTES # (AUTO) 2.8 (1.0-3.2); LYMPHOCYTES % 26.8 % (18.0-39.1); MEAN CORPUSCULAR HEMOGLOBIN 32.6 pg (28-32); MEAN CORPUSCULAR HGB CONC 33.5 g/dL (31-35); MEAN CORPUSCULAR VOLUME 97.3 fL (81-99); MONOCYTES # (AUTO) 1.1 (0.2-0.8); NEUTROPHILS # (AUTO) 6.5 (2.1-6.9); NEUTROPHILS % 61.5 % (38.7-80.0); PLATELET COUNT 224 x10e3/uL (140-360); RED BLOOD COUNT 4.51 x10e6/uL (4.3-5.7)
[2019-07-04 06:45] LABS: INR 0.96; PROTHROMBIN TIME 13.4 seconds (11.9-14.5)
[2019-07-04 06:46] LABS: PARTIAL THROMBOPLASTIN TIME 27.8 seconds (23.8-35.5)
[2019-07-04 07:01] LABS: ANION GAP 12.4 mmol/L (8-16); BLOOD UREA NITROGEN 13 mg/dL (7-26); BUN/CREATININE RATIO 15 (6-25); CALCIUM 9.5 mg/dL (8.4-10.2); CARBON DIOXIDE 29 mmol/L (22-29); CHLORIDE 104 mmol/L (98-107); CREATININE, SERUM 0.84 mg/dL (0.72-1.25); EST GLOMERULAR FILTRATION RATE > 60 ML/MIN (60-); GLUCOSE 99 mg/dL (74-118); MAGNESIUM 2.1 MG/DL (1.3-2.1); POTASSIUM 4.4 mmol/L (3.5-5.1); SODIUM 141 mmol/L (136-145)
--- NOTE | 2019-07-04 07:10 | NUR ---
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 LEFT CHEST TUBE. CALL LIGHT WITHIN REACH, BED IS LOW AND LOCKED, SIDE RAILS UPX2, BED ALARM ON.
[2019-07-04] MEDS ORDERED: ALBUTEROL SULFATE HFA 8GM INHALATION AEROSOL INH PRN (08:15)
--- NOTE | 2019-07-04 08:59 | Consultation ---
DATE OF CONSULTATION: Pulmonary Critical Care Consultation Note CHIEF COMPLAINT: Recurrent pneumothorax. HISTORY OF PRESENT ILLNESS: The patient is a 64-year-old man with a history of multiple sclerosis and prior prostate surgery. He was recently admitted to the hospital with a left pneumothorax secondary to bullous emphysema. He had a chest tube in the lung with banded, but then recollapsed several days later as an outpatient. He noticed more shortness of breath and more chest pain and returned to the office. He required readmission. PAST SURGICAL HISTORY: 1. Status post prostate surgery. 2. Status post pigtail with chest tube last week. SOCIAL HISTORY: The patient quit smoking 30 years ago. He does smoke cigars. He is not a drinker. ALLERGIES: THE PATIENT IS ALLERGIC TO IV CONTRAST. FAMILY HISTORY: Noncontributory. REVIEW OF SYSTEMS: The patient is afebrile. He has no headache. He is not having any neck pain. He does not have any cough. He did have difficulty breathing, but this has improved since his chest tube was placed again. He had chest pain, but this has improved since his chest tube was placed again. He has no nausea or vomiting. He has leg edema. Neurological exam shows diffuse weakness, possibly secondary to multiple sclerosis. PHYSICAL EXAMINATION: VITAL SIGNS: The patient is afebrile. The blood pressure is 120/65 and the oxygen saturation is 98%. HEENT: Shows no facial swelling or erythema. CARDIAC: Reveals regular rate and rhythm with normal S1 and S2. RESPIRATORY: Auscultation of lungs reveal clear breath sounds bilaterally. There is a pigtail chest tube in the left hemithorax. There is no air leak. ABDOMEN: Soft and nontender. There is no rebound or guarding. EXTREMITIES: Show no leg edema or calf tenderness. NEUROLOGICAL: Shows diffuse weakness. He has difficulty standing. This is his baseline. LABORATORY DATA: White blood cell count is 10.55, the hemoglobin is 14.7, and the platelet count is 224. BUN to creatinine ratio is normal. Other electrolytes are within normal limits. RADIOGRAPHIC DATA: Chest CT scan showed recurrent left pneumothorax that improved with placement of a pigtail catheter. There is some centrilobular and paraseptal emphysema. There are multiple apical bullae. IMPRESSION: 1. Recurrent left pneumothorax secondary to bullae. 2. Bullous emphysema. 3. Multiple sclerosis. 4. Benign prostatic hypertrophy. PLAN: 1. Case discussed with Thoracic Surgery. The patient will need a video-assisted thoracoscopy or possible open thoracotomy for removal of the bullae and possible pleurodesis. 2. Repeat chest x-ray. 3. Continue to monitor laboratory values. 4. Physical Therapy. MD JENNIFER Rice/MODL /[id number]
[2019-07-04] MEDS: FAMOTIDINE 20 MG TAB PO SCH ×2 (09:31→16:58)
--- NOTE | 2019-07-04 10:30 | Diagnostic Imaging Report ---
EXAMINATION: CHEST 2 VIEWS INDICATION: Pneumothorax COMPARISON: Chest radiograph 07/03/2019, chest CT 07/03/2019 FINDINGS: LINES/TUBES:Right basilar chest tube in place. LUNGS:The lungs are hyperinflated with emphysematous changes. The left lung has completely were expanded. PLEURA:No definite residual left pneumothorax. No right pneumothorax. No pleural effusion. MEDIASTINUM:The cardiomediastinal silhouette appears unchanged in size and shape. BONES/SOFT TISSUES:No acute osseous injury. Left chest wall subcutaneous emphysema. ABDOMEN:No free air under the diaphragm. IMPRESSION: Re-expansion of the left lung with resolution of previously seen pneumothorax. Given that the patient previously did not tolerate chest tube removal and developed a recurrent pneumothorax, further attempts to remove the chest tube, once clinically indicated, should be preceded by extended trial of clamping with serial imaging. Signed by: Vivian Byrd MD on 07/04/2019 10:26 AM
[2019-07-04] MEDS ORDERED: HEPARIN SOD/SOD CHLORIDE 1,000 ML ONE (14:23)
--- NOTE | 2019-07-04 16:24 | NUR ---
Nutrition Screen Note RD Recommendation for Physician: -Continue regular diet Plan of Care: RD following, monitoring for tolerance and adequacy Nutrition reason for involvement: Nutrition Risk Trigger MST 2 Primary Diagnose(s): recurrent pneumothorax, emphysema PMH: multiple sclerosis Ht: 69 in Wt:150 lb BMI: 22.2 kg/m2 IBW:[address] Assessment: (07/04/19) Chart reviewed. Labs and meds reviewed. Pt is a 64 year old male admitted with recurrent pneumothorax and emphysema. Pt reports eating >50% of his meals. No weight loss reported. No N/V or chewing/swallowing issues. Will continue to monitor. Current Diet: Regular Malnutrition Evaluation (07/04/19) The patient does not meet criteria for a specified degree of malnutrition at this time. Will re-evaluate at follow-up as appropriate. Diet Education Needs Assessment: Diet education not indicated. Pt is on a regular diet Nutrition Care Level: low Signed: Nikki Lee, RD, LD
--- NOTE | 2019-07-04 16:43 | Diagnostic Imaging Report ---
PROCEDURE: Chest tube placement Procedural Personnel Attending physician(s): Vivian Byrd MD Fellow physician(s): None Resident physician(s): None Advanced practice provider(s): None Pre-procedure diagnosis: Left pneumothorax Post-procedure diagnosis: Same Indication: Pneumothorax Additional clinical history: None Complications: No immediate complications. IMPRESSION: Left-sided 8 Peruvian chest tube placement, yielding air. Plan: Left chest tube to -20 suction then water seal on ptx resolution. PROCEDURE SUMMARY: - Percutaneous pleural drainage with insertion of indwelling catheter under fluoroscopic guidance - Additional procedure(s): None PROCEDURE DETAILS: Pre-procedure Consent: Informed consent for the procedure including risks, benefits and alternatives was obtained and time-out was performed prior to the procedure. Preparation: The site was prepared and draped using maximal sterile barrier technique including cutaneous antisepsis. Anesthesia/sedation Level of anesthesia/sedation: No sedation Anesthesia/sedation administered by: Independent trained observer under attending supervision with continuous monitoring of the patient?s level of consciousness and physiologic status Total intra-service sedation time (minutes): N/A Chest tube placement The patient was positioned supine. Initial imaging was performed. Local anesthesia was administered. The pleural space was accessed using an access needle followed by wire insertion and serial dilation and a drainage catheter was placed. Position of the drainage catheter within the pleural space was confirmed. - Initial imaging findings: Large left pneumothorax - Drainage catheter placed: 8Fr Uresil - External catheter securement: Non-absorbable suture - Post-drainage imaging findings: Resolution of pneumothorax - Additional findings: None Contrast Contrast agent: None Contrast volume (mL): 0 Radiation Dose Fluoroscopy time (minutes): 0.3 Reference air kerma (mGy): 0.8 Additional Details Additional description of procedure: None Equipment details: None Specimens removed: N.A Estimated blood loss (mL): Less than 10 Standardized report: [email or web address] Attestation Signer name: Vivian Byrd MD I attest that I was present for the entire procedure. I reviewed the stored images and agree with the report as written. Signed by: Vivian Byrd MD on 07/04/2019 4:39 PM
[2019-07-04] MEDS ORDERED: ZOLPIDEM TARTRATE 5 MG TAB PO PRN (21:00)
[2019-07-04] MEDS: AZITHROMYCIN 500MG/NS 250 ML 250 ML IV SCH (23:24)
[2019-07-05] VITALS (18 sets, daily range): BP systolic 105–150; BP diastolic 49–74
--- NOTE | 2019-07-05 00:30 | NUR ---
UPON ENTERING ROOM CT CHAMBER BUBBLING SIGNIFICANTLY, ALL TUBING INTACT, OCCLUSIVE DRESSING INTACT, VALVE TURNED "OFF" TO PATIENT AND OPEN TO AIR, PATIENT STATES HE MAY HAVE ACCIDENTALLY MANIPULATED IT MOVING IN BED, CORRECTED POSITION OF VALVE, SEROUS FLUID FLOWING THROUGH CT TUBING AT THIS TIME, NO BUBBLING FURTHER NOTED, PATIENT EDUCATED ON CHEST TUBE EXPECTATIONS
[2019-07-05 06:06] LABS: BASOPHILS % 0.3 % (0.0-1.0); EOSINOPHILS # (AUTO) 0.1 (0.0-0.4); EOSINOPHILS % 0.6 % (0.0-6.0); HEMATOCRIT 40.8 % (38.2-49.6); HEMOGLOBIN 13.5 g/dL (14.0-18.0); INR 0.88; LYMPHOCYTES # (AUTO) 2.5 (1.0-3.2); LYMPHOCYTES % 24.2 % (18.0-39.1); MEAN CORPUSCULAR HGB CONC 33.1 g/dL (31-35); MEAN CORPUSCULAR VOLUME 96.7 fL (81-99); NEUTROPHILS # (AUTO) 6.6 (2.1-6.9); NEUTROPHILS % 64.6 % (38.7-80.0); PLATELET COUNT 226 x10e3/uL (140-360); PROTHROMBIN TIME 12.5 seconds (11.9-14.5); RED BLOOD COUNT 4.22 x10e6/uL (4.3-5.7); RED CELL DISTRIBUTION WIDTH 12.7 % (11.7-14.4)
[2019-07-05 06:07] LABS: PARTIAL THROMBOPLASTIN TIME 27.5 seconds (23.8-35.5)
[2019-07-05 06:19] LABS: ANION GAP 12.9 mmol/L (8-16); BLOOD UREA NITROGEN 13 mg/dL (7-26); BUN/CREATININE RATIO 18 (6-25); CARBON DIOXIDE 25 mmol/L (22-29); CHLORIDE 105 mmol/L (98-107); CREATININE, SERUM 0.72 mg/dL (0.72-1.25); EST GLOMERULAR FILTRATION RATE > 60 ML/MIN (60-); GLUCOSE 105 mg/dL (74-118); MAGNESIUM 1.9 MG/DL (1.3-2.1); POTASSIUM 3.9 mmol/L (3.5-5.1); SODIUM 139 mmol/L (136-145)
[2019-07-05] MEDS: FAMOTIDINE 20 MG TAB PO SCH ×2 (07:30→15:57)
--- NOTE | 2019-07-05 07:30 | NUR ---
PATIENT LEFT FLOOR TO SURGERY. PT IS A&OX3, NO DISTRESS NOTED. LEFT CHEST TUBE HANGING TO BED CLAMPED.
[2019-07-05] MEDS ORDERED: BACITRACIN 50,000 UNIT VIAL ONE (08:10)
--- NOTE | 2019-07-05 09:05 | Progress Note ---
DATE: REASON FOR NOTE: Recurrent left pneumothorax; requested by Dr. Addy Crawford. ASSISTANT HOUSEKEEPING MANAGER: Aquilino Pacheco MD SUBJECTIVE: Comfortable. No air leak in chest tube. Breathing comfortably. OBJECTIVE: VITAL SIGNS: Blood pressure 130/70, pulse 85 and regular, respirations 16 and unlabored. NECK: Supple, nontender. No JVD. CARDIAC: Regular rate and rhythm. Normal S1 and S2. LUNGS: Full breath sounds bilaterally. No air leak in the Pleur-evac. Chest tube in place appropriately. ABDOMEN: Good bowel sounds. Benign. EXTREMITIES: No cyanosis, clubbing, or edema. LABORATORY DATA: White count 10.1, hemoglobin 13.5, hematocrit 40.8, and platelet count 226,000. INR is 0.88 with PT 12.5. Sodium 139 and potassium 3.9. REVIEW OF SYSTEMS: No chest pain. No shortness of breath. No abdominal pain. No neurologic findings. IMPRESSION: Persistent pneumothorax. PLAN: Thoracoscopic/open left bleb resection. I have described the operation to the patient and his . I told them that the risks of surgery would include , bleeding, infection, heart attack, stroke, pneumonia, prolonged ICU stay, mechanical ventilation, tracheostomy, recurrence of the pneumothorax, which I estimated to be at 2% to 5%, etc. The patient and his each stated that they understood, no further questions, and wanted to proceed. The plan is for surgery today. MD ELISE Siddiqi/ANA ROSA /[id number]
[2019-07-05] MEDS ORDERED: LIDOCAINE 1% W/EPINEPHRINE 20 ML VIAL ONE (09:12)
[2019-07-05] MEDS ORDERED: SUGAMMADEX SODIUM 200 MG/2 ML VIAL IV ONE (09:25)
[2019-07-05] MEDS ORDERED: ACETAMINOPHEN 1000 MG/100 ML 100 ML IV ONE (09:25)
[2019-07-05 10:34] LABS: BASOPHILS % 0.2 % (0.0-1.0); EOSINOPHILS % 0.4 % (0.0-6.0); HEMATOCRIT 35.2 % (38.2-49.6); HEMOGLOBIN 11.7 g/dL (14.0-18.0); LYMPHOCYTES # (AUTO) 2.2 (1.0-3.2); LYMPHOCYTES % 25.3 % (18.0-39.1); MEAN CORPUSCULAR HEMOGLOBIN 32.4 pg (28-32); MEAN CORPUSCULAR HGB CONC 33.2 g/dL (31-35); MEAN CORPUSCULAR VOLUME 97.5 fL (81-99); MONOCYTES # (AUTO) 0.7 (0.2-0.8); MONOCYTES % 7.7 % (4.4-11.3); NEUTROPHILS # (AUTO) 5.6 (2.1-6.9); NEUTROPHILS % 65.9 % (38.7-80.0); PLATELET COUNT 181 x10e3/uL (140-360); RED BLOOD COUNT 3.61 x10e6/uL (4.3-5.7); RED CELL DISTRIBUTION WIDTH 12.6 % (11.7-14.4)
--- NOTE | 2019-07-05 10:36 | Operative Report ---
DATE OF PROCEDURE: 07/05/2019 SURGEON: Tj Finnegan MD PREOPERATIVE DIAGNOSES: 1. Recurrent left pneumothorax. 2. Multiple sclerosis. POSTOPERATIVE DIAGNOSES: 1. Recurrent left pneumothorax. 2. Multiple sclerosis. OPERATIVE PROCEDURE: Thoracoscopic lung resection of left lung bleb and mechanical pleurodesis. BALL HOLDER: Nursing. ANESTHESIA: General endotracheal with a double-lumen endotracheal tube. INDICATIONS: This is a 64-year-old man with a recurrent left pneumothorax. He was in the hospital about a week ago and had a left pneumothorax and was treated with a chest tube. He went home and it recurred. Lung and bleb resection as well as pleurodesis have been recommended. Prior to surgery, I described the operation to the patient and his . I told him that the risks of surgery would include , bleeding, infection, heart attack, stroke, pneumonia, recurrent pneumothorax (estimated at approximately 5%), tracheostomy, prolonged chest tube drainage, etc. The patient and his each stated that they understood, no further questions, wanted to proceed. I spoke with the by phone since the social distancing because of the muñoz virus is in effect). The patient and his each stated that they understood, no further questions, and wanted to proceed. FINDINGS: Uneventful resection of left apical lung bleb. Uneventful mechanical pleurodesis. DESCRIPTION OF PROCEDURE: The patient was taken to the operating room on July 05, 2019 and placed supine upon the operating room table. General endotracheal anesthesia was smoothly induced. Double-lumen endotracheal tube was placed. The patient was placed with his left side up. The left chest was sterilely prepped and draped in the usual fashion using alcohol prewash and Betadine scrub and solution. Time-out was performed appropriately. Three Thoracoports were inserted in a triangular pattern in the left chest. The lung was completely examined. Blebs and damaged lung were present at the apex of the lung. In this area, it was adherent to the pleura. The adhesions were taken down using cautery and sharp dissection. The diseased area of lung was resected using AMRIT stapler. It was brought through the chest wall using an endobag. It was sent to pathology for permanent analysis. The remaining lung did not have any areas of blebs or abnormalities. Mechanical pleurodesis using a Bovie scratch pad was then carried out at the apex. Chest tube was inserted through the Thoracoport incision. The other Thoracoport incisions were closed after infiltrating local anesthesia. Sterile dressings were applied. Sponge, instrument, and needle counts were correct both prior to and after wound closure. Independent search of the operative field by both operating surgeons and nurse revealed no retained instruments or sponges. The patient tolerated the procedure well, was taken to recovery area in stable condition. MD ELISE Siddiqi/ANA ROSA /[id number]
[2019-07-05 10:54] LABS: ANION GAP 11.6 mmol/L (8-16); BLOOD UREA NITROGEN 11 mg/dL (7-26); BUN/CREATININE RATIO 18 (6-25); CALCIUM 8.2 mg/dL (8.4-10.2); CARBON DIOXIDE 25 mmol/L (22-29); CHLORIDE 105 mmol/L (98-107); CREATININE, SERUM 0.62 mg/dL (0.72-1.25); EST GLOMERULAR FILTRATION RATE > 60 ML/MIN (60-); GLUCOSE 117 mg/dL (74-118); POTASSIUM 3.6 mmol/L (3.5-5.1); SODIUM 138 mmol/L (136-145)
--- NOTE | 2019-07-05 10:55 | NUR ---
Pt out of room and no family at bedside. Field Marketing Coordinator will follow up as able. OSCAR MURILLO Field Marketing Coordinator Spiritual Care Department O: [phone]
--- NOTE | 2019-07-05 11:12 | Diagnostic Imaging Report ---
EXAM: CHEST SINGLE (PORTABLE) DATE: 07/05/2019 10:16 AM INDICATION: chest tube, central line placement COMPARISON: 07/04/2019 FINDINGS/IMPRESSION: Small bore left chest tube has been removed and there has been interval placement of a large-bore left-sided chest tube with distal tip terminating over the left apex. There is a trace residual apical pneumothorax present. Small amount of subcutaneous emphysema noted within the left neck. Right-sided central venous catheter identified with distal tip terminating appropriately over the SVC. There is no evidence for large focal consolidation or significant pleural effusion. The cardiomediastinal silhouette is stable in appearance. No acute osseous abnormalities identified. Signed by: Dr. Isauro Fatima MD on 07/05/2019 11:09 AM
[2019-07-05] MEDS ORDERED: MORPHINE SULFATE 2 MG/ML SYR 1ML IV PRN (11:45)
--- NOTE | 2019-07-05 14:56 | Progress Note ---
DATE: SUBJECTIVE: The patient went to the OR today. He had a mini-thoracotomy done with video-assisted thoracoscopy. A portion of the emphysematous lung was removed. His lung was reinflated and he was sent back to the ICU. He currently has a chest tube in place with a small air leak. He is on morphine as needed for pain. He is hemodynamically stable and urinating well. PHYSICAL EXAMINATION: VITAL SIGNS: The patient is afebrile. The blood pressure is 146/64, saturation is 100%. HEENT: Shows no facial swelling or erythema. The oropharynx is normal. LYMPHATIC: Shows no submandibular, cervical, or supraclavicular adenopathy. CARDIAC: Reveals a regular rate and rhythm with normal S1 and S2. LUNGS: Auscultation of lungs reveals decreased breath sounds at the bases. There is no wheezing. ABDOMEN: Soft, nontender. There is no rebound or guarding. EXTREMITIES: Show no leg edema or calf tenderness. Chest tube shows minimal output, but there is a small air leak. RADIOGRAPHIC DATA: Chest x-ray shows a chest tube in good position. There is trace apical pneumothorax with a small amount of subcutaneous emphysema in the left neck. There is a right IJ line in good position. IMPRESSION: 1. Recurrent pneumothorax secondary to bullous emphysema. 2. Status post video-assisted thoracoscopy with resection of bulla and pleurodesis. 3. Multiple sclerosis. 4. Benign prostatic hypertrophy. PLAN: 1. Continue chest tube to suction. 2. Morphine as needed for pain. 3. Monitor urine output. 4. Repeat CBC and CMP tomorrow. 5. Adjust oxygen as needed. 6. Case discussed with the patient, nursing staff, and Dr. Finnegan. Greater than 35 minutes in direct critical care time. Addy Crawford MD LM/ANA ROSA /[id number]
[2019-07-05] MEDS ORDERED: DOCUSATE SODIUM LIQD 100 MG/10 ML UDC NG SCH (15:00)
[2019-07-05] MEDS ORDERED: MORPHINE SULFATE 2 MG/ML SYR 1ML ONE (16:28)
[2019-07-05] MEDS ORDERED: DEXAMETHASONE SOD PHOS INJ 4 MG/ML VIAL ONE (17:43)
[2019-07-05] MEDS ORDERED: EPHEDRINE SULFATE INJ 50 MG/ML VIAL ONE (17:43)
[2019-07-05] MEDS ORDERED: ONDANSETRON HCL INJ 2MG/ML 2ML 2 MG/ML VIAL ONE (17:43)
[2019-07-05] MEDS ORDERED: ROCURONIUM BROMIDE 10 MG/ML 5ML VIAL IV ONE (17:43)
[2019-07-05] MEDS ORDERED: SEVOFLURANE INHAL SOLN 250 ML PEN BTL ONE (17:43)
[2019-07-05] MEDS ORDERED: ACETAMINOPHEN 1000 MG/100 ML IV ONE (17:43)
[2019-07-05] MEDS ORDERED: PROPOFOL IV EMULSION 10 MG/ML 20 ML VIAL ONE (17:43)
[2019-07-05] MEDS ORDERED: LIDOCAINE HCL 2% LOCAL INJ 5 ML SDV VIAL INJ ONE (17:43)
--- NOTE | 2019-07-05 17:49 | NUR ---
Patient delivered to ICU by LAB TECH s/p L wedge resection. Dressing CDI. Pt has a left chest tube to -20 suction. Dressing change done on RIJ. Diet orders clarified with Dr. Finnegan, orders given advance as tolerated. Orders given for AM chest x ray and throat spray. Will continue to monitor.
[2019-07-05] MEDS ORDERED: KETAMINE HCL INJ 50 MG/ML 10 ML VIAL ONE (17:50)
[2019-07-05] MEDS ORDERED: FENTANYL CITRATE/PF 100MCG/2 ML INJ ONE (17:50)
[2019-07-05] MEDS ORDERED: MIDAZOLAM HCL 2 MG/2 ML VIAL ONE (17:50)
[2019-07-05] MEDS: DOCUSATE SODIUM 100 MG CAP PO SCH (20:54)
[2019-07-05] MEDS: AZITHROMYCIN 500MG/NS 250 ML 250 ML IV SCH (23:12)
[2019-07-06] VITALS (18 sets, daily range): BP systolic 100–134; BP diastolic 45–71
[2019-07-06 06:07] LABS: BASOPHILS % 0.2 % (0.0-1.0); EOSINOPHILS % 0.4 % (0.0-6.0); HEMATOCRIT 36.2 % (38.2-49.6); LYMPHOCYTES # (AUTO) 2.6 (1.0-3.2); LYMPHOCYTES % 23.4 % (18.0-39.1); MEAN CORPUSCULAR HEMOGLOBIN 32.2 pg (28-32); MEAN CORPUSCULAR HGB CONC 33.1 g/dL (31-35); MEAN CORPUSCULAR VOLUME 97.1 fL (81-99); MONOCYTES # (AUTO) 1.3 (0.2-0.8); MONOCYTES % 11.3 % (4.4-11.3); NEUTROPHILS # (AUTO) 7.2 (2.1-6.9); NEUTROPHILS % 64.3 % (38.7-80.0); PLATELET COUNT 223 x10e3/uL (140-360); RED BLOOD COUNT 3.73 x10e6/uL (4.3-5.7); RED CELL DISTRIBUTION WIDTH 12.6 % (11.7-14.4)
[2019-07-06 06:25] LABS: ANION GAP 9.6 mmol/L (8-16); BLOOD UREA NITROGEN 9 mg/dL (7-26); BUN/CREATININE RATIO 14 (6-25); CALCIUM 8.4 mg/dL (8.4-10.2); CARBON DIOXIDE 29 mmol/L (22-29); CHLORIDE 102 mmol/L (98-107); CREATININE, SERUM 0.64 mg/dL (0.72-1.25); EST GLOMERULAR FILTRATION RATE > 60 ML/MIN (60-); GLUCOSE 87 mg/dL (74-118); POTASSIUM 3.6 mmol/L (3.5-5.1); SODIUM 137 mmol/L (136-145)
--- NOTE | 2019-07-06 06:45 | Diagnostic Imaging Report ---
EXAMINATION: CHEST SINGLE (PORTABLE) INDICATION: Chest tube. COMPARISON: Chest radiograph 07/05/2019, chest CT 07/03/2019 FINDINGS: LINES/TUBES:Left apical chest tube. Right IJ central venous catheter terminates in the SVC. LUNGS:Emphysematous changes of the lungs. Mild bilateral interstitial opacities. No evidence of lobar pneumonia or pulmonary edema. PLEURA:Unchanged trace left-sided pneumothorax. No right pneumothorax. No pleural effusion. MEDIASTINUM:Unremarkable cardiomediastinal silhouette. BONES/SOFT TISSUES:No acute osseous abnormality. Subcutaneous air within the left lower neck and left chest wall. ABDOMEN:No free air under the diaphragm. IMPRESSION: Left apical chest tube with trace left sided pneumothorax. Signed by: Dr. Reynaldo Ross MD on 07/06/2019 6:42 AM
[2019-07-06] MEDS: FAMOTIDINE 20 MG TAB PO SCH ×2 (07:45→15:56)
[2019-07-06] MEDS: DOCUSATE SODIUM 100 MG CAP PO SCH ×3 (09:22→20:50)
[2019-07-06] MEDS: GUAIFENESIN/CODEINE 10 ML CUP PO PRN (09:22)
[2019-07-06] MEDS: ACETAMINOPHEN/CODEINE 300MG - 30MG TAB PO PRN ×2 (11:40→20:37)
--- NOTE | 2019-07-06 15:05 | Progress Note ---
DATE: SUBJECTIVE: The patient has less pain, although he still has some pain with inspiration. He has minimal drainage from his chest tube. He has a very small air leak. PHYSICAL EXAMINATION: VITAL SIGNS: The patient is afebrile. The blood pressure is 100/45 and saturation is 98% on 1 L. HEENT: Shows no facial swelling or erythema. CARDIAC: Reveals regular rate and rhythm with normal S1 and S2. There are no murmurs or rubs heard. LUNGS: Auscultation of lungs reveals clear breath sounds bilaterally. There is decreased breath sounds at the bases. There is a chest tube on the left side. The patient has some very small air leak. There is about 50 mL of drainage overnight. ABDOMEN: Soft, nontender. There is no rebound or guarding. EXTREMITIES: Show no leg edema or calf tenderness. LABORATORY DATA: White blood cell count is 11.1 and hemoglobin is 12. The platelet count is 223. BUN to creatinine ratio is 9 to 0.64 and the other electrolytes are within normal limits. IMPRESSION: 1. Pneumothorax secondary to bullous emphysema. 2. Bullous emphysema. 3. Status post video-assisted thoracoscopy with bleb resection and pleurodesis. PLAN: 1. Transfer patient to floor. 2. Remove Kasper. 3. Remove arterial line. 4. Discuss potential transfer to water-seal chest tube with CT surgery. MD JENNIFER Rice/ANA ROSA /[id number]
--- NOTE | 2019-07-06 16:10 | NUR ---
During shift pt was refusing to turn because of pain. RN stated he had medications ordered as needed to manage pain, pt did not want to take pain medications or turn stating he was comfortable. Pt educated by RN that he will need to move to promote healing and prevent wounds. Pt refusing to turn at this time. Dr. Brooke Crawford gave orders for physical therapy, to d/c Kasper catheter, arterial line and transfer to medical surgical unit. Physical therapy worked with patient. Arterial line removed, pressure applied. Kasper removed at 1550. Foam dressing changed over sacral skin tear. Pt transferred to medical surgical unit 1 at 1600. Vital signs stable, pt on room air sating 96%. L chest tube intact to suction -20. Med-surg nurse at bedside to receive patient. Addendum: 07/06/19 at 1703 by Robyn Dennis RN Dr. Brooke crawford aware of small air leak in chest tube.
--- NOTE | 2019-07-06 16:45 | NUR ---
RECD PT FROM ICU RM [id number],DENIES ,CHEST TUBE IN PLACE AND INTACT TO WS,DTV BY 0.RT IJ IN PLAC PATENT
[2019-07-06] MEDS: AZITHROMYCIN 500MG/NS 250 ML 250 ML IV SCH (23:15)
[2019-07-06] MEDS ORDERED: SODIUM CHLORIDE 0.9% 250ML 250 ML ONE (23:17)
[2019-07-07] VITALS (8 sets, daily range): BP systolic 112–119; BP diastolic 55–73
[2019-07-07] MEDS: GUAIFENESIN/CODEINE 10 ML CUP PO PRN (04:25)
[2019-07-07 06:06] LABS: BASOPHILS % 0.3 % (0.0-1.0); EOSINOPHILS # (AUTO) 0.1 (0.0-0.4); EOSINOPHILS % 0.5 % (0.0-6.0); HEMATOCRIT 36.8 % (38.2-49.6); HEMOGLOBIN 12.6 g/dL (14.0-18.0); LYMPHOCYTES # (AUTO) 1.6 (1.0-3.2); LYMPHOCYTES % 16.8 % (18.0-39.1); MEAN CORPUSCULAR HEMOGLOBIN 32.8 pg (28-32); MEAN CORPUSCULAR HGB CONC 34.2 g/dL (31-35); MEAN CORPUSCULAR VOLUME 95.8 fL (81-99); MONOCYTES # (AUTO) 1.2 (0.2-0.8); MONOCYTES % 13.1 % (4.4-11.3); NEUTROPHILS # (AUTO) 6.4 (2.1-6.9); NEUTROPHILS % 68.9 % (38.7-80.0); PLATELET COUNT 232 x10e3/uL (140-360); RED BLOOD COUNT 3.84 x10e6/uL (4.3-5.7); RED CELL DISTRIBUTION WIDTH 12.9 % (11.7-14.4)
[2019-07-07 06:28] LABS: ANION GAP 8.7 mmol/L (8-16); BLOOD UREA NITROGEN 9 mg/dL (7-26); BUN/CREATININE RATIO 15 (6-25); CALCIUM 8.4 mg/dL (8.4-10.2); CARBON DIOXIDE 30 mmol/L (22-29); CHLORIDE 104 mmol/L (98-107); CREATININE, SERUM 0.62 mg/dL (0.72-1.25); EST GLOMERULAR FILTRATION RATE > 60 ML/MIN (60-); GLUCOSE 102 mg/dL (74-118); POTASSIUM 3.7 mmol/L (3.5-5.1); SODIUM 139 mmol/L (136-145)
--- NOTE | 2019-07-07 07:25 | NUR ---
PT UP INBED C/O SIDE PAIN,MEDICATED.CHEST TUBE IN PLACE .
[2019-07-07] MEDS: ACETAMINOPHEN/CODEINE 300MG - 30MG TAB PO PRN ×2 (07:32→14:48)
[2019-07-07] MEDS: FAMOTIDINE 20 MG TAB PO SCH ×2 (08:00→16:30)
[2019-07-07] MEDS: DOCUSATE SODIUM 100 MG CAP PO SCH ×3 (09:00→21:18)
--- NOTE | 2019-07-07 12:02 | Diagnostic Imaging Report ---
EXAMINATION: CHEST SINGLE (PORTABLE) INDICATION: ^F/U PNEUMOTHORAX ^[id number] ^1040 COMPARISON: 07/06/2019 FINDINGS: AP view TUBES and LINES: Right chest central venous catheter with tip overlying the caval junction, unchanged. Left thoracostomy tube with tip in the left apex, unchanged. LUNGS: Lungs are well inflated. Scattered areas of atelectasis mainly in the left infrahilar and suprahilar regions. Bilateral emphysema. No pulmonary edema. PLEURA: No pleural effusion or pneumothorax. HEART AND MEDIASTINUM: The cardiomediastinal silhouette is unremarkable.. BONES AND SOFT TISSUES: No acute osseous lesion. Soft tissues are unremarkable. UPPER ABDOMEN: No free air under the diaphragm. IMPRESSION: Stable left thoracostomy tube without visualized pneumothorax on today's exam. Scattered areas of atelectasis mainly in the left lower lobe and suprahilar region are unchanged. Signed by: Dr. Annabel Urena M.D. on 07/07/2019 11:59 AM
--- NOTE | 2019-07-07 12:09 | Progress Note ---
DATE: SUBJECTIVE: The patient was transferred out of the Intensive Care Unit last night. His A-line was removed. His Kasper was removed. He had only 28 mL of drainage from his chest tube overnight. He has no air leak. PHYSICAL EXAMINATION: VITAL SIGNS: The patient is afebrile. The blood pressure is 117/73, saturation is 94%. HEENT: Shows no facial swelling or erythema. CARDIAC: Reveals a regular rate and rhythm with normal S1 and S2. LUNGS: Auscultation of lungs reveals clear breath sounds bilaterally. There is no wheezing. ABDOMEN: Soft, nontender. There is no rebound or guarding. EXTREMITIES: Show no leg edema or calf tenderness. There is no cyanosis or clubbing. SKIN: Shows no rashes. IMPRESSION: 1. Pneumothorax secondary to bullous emphysema. 2. Status post video-assisted thoracoscopy with bleb resection and pleurodesis. 3. Bullous emphysema. 4. Multiple sclerosis. 5. Prostatic hypertrophy. PLAN: 1. Switch chest tube to water seal and monitor. Discuss potential removal of chest tube with thoracic surgery. 2. Out of bed as tolerated. 3. Physical therapy. 4. Case discussed with the patient and thoracic surgery along with nursing staff. Addy Crawford MD [facility]/ANA ROSA /[id number]
--- NOTE | 2019-07-07 14:36 | NUR ---
pt refusing to participate 2/2 pain of chest tube with any movement. willf/u on 07-09-2019 Addendum: 07/07/19 at 1437 by Steve Stafford PTA Amended: Links added.
--- NOTE | 2019-07-07 16:00 | NUR ---
ASSISTED UP TO CHAIR ,NO DISTRESS NOTED,CHEST TUBE IN PLACE.
--- NOTE | 2019-07-07 17:37 | NUR ---
PT IN BED RESTING NO S/S DISCOMFORT
--- NOTE | 2019-07-07 20:20 | Progress Note ---
DATE: 07/06/2019 REASON FOR NOTE: Status post bleb resection. Wounds clean. No air leak in Pleur-evac. Chest x-ray shows fully expanded lung. The patient's vital signs stable. IMPRESSION: Good progress. Likely discontinue chest tube tomorrow or Tuesday. MD ELISE Siddiqi/ANA ROSA /[id number]
[2019-07-07] MEDS: AZITHROMYCIN 500MG/NS 250 ML 250 ML IV SCH (23:15)
[2019-07-08] VITALS (9 sets, daily range): BP systolic 103–130; BP diastolic 59–76
[2019-07-08] MEDS: FAMOTIDINE 20 MG TAB PO SCH ×2 (07:58→17:23)
[2019-07-08] MEDS: DOCUSATE SODIUM 100 MG CAP PO SCH ×3 (07:58→21:36)
[2019-07-08] MEDS: ACETAMINOPHEN/CODEINE 300MG - 30MG TAB PO PRN ×2 (07:59→14:40)
--- NOTE | 2019-07-08 11:56 | Progress Note ---
DATE: SUBJECTIVE: The patient had his chest tubes switched to water-seal yesterday. There is no air leak. He feels better overall and is eager to have his tube removed. PHYSICAL EXAMINATION: VITAL SIGNS: The patient is afebrile. The blood pressure is 117/65. Saturation is 97% on room air. HEENT: Shows no facial swelling or erythema. CARDIAC: Reveals a regular rate and rhythm with normal S1, S2. LUNGS: Auscultation of lungs shows decreased breath sounds on the left side. ABDOMEN: Soft, nontender. There is no rebound or guarding. EXTREMITIES: Show no leg edema or calf tenderness. There is no cyanosis or clubbing. SKIN: Shows no rashes. RADIOGRAPHIC DATA: Chest x-ray shows stable chest tube with no visualized pneumothorax. IMPRESSION: 1. Recurrent pneumothorax secondary to bullous emphysema. 2. Status post video-assisted thoracoscopy with bleb resections. 3. Multiple sclerosis. 4. Prostatic hypertrophy. PLAN: 1. Thoracic surgery to remove chest tube today or tomorrow. 2. Out of bed as tolerated. 3. Physical therapy. Addy Crawford MD [facility] /[id number]
--- NOTE | 2019-07-08 14:40 | NUR ---
patient sitting in chair. tolerating well. medicated for pain of 6/10 to left mid chest at chest tube insertion site. dressing to chest tube c/d/i. to suction and 20 cm. dressing to sarcrum c/d/i. urinating without difficulty. see chart for details.
[2019-07-08] MEDS: AZITHROMYCIN 500MG/NS 250 ML 250 ML IV SCH (22:55)
[2019-07-09 04:21] VITALS: BP 119/70
[2019-07-09] MEDS: ACETAMINOPHEN/CODEINE 300MG - 30MG TAB PO PRN ×2 (05:20→07:03)
[2019-07-09 05:46] LABS: BASOPHILS % 0.2 % (0.0-1.0); EOSINOPHILS # (AUTO) 0.2 (0.0-0.4); EOSINOPHILS % 1.9 % (0.0-6.0); HEMATOCRIT 35.6 % (38.2-49.6); HEMOGLOBIN 11.9 g/dL (14.0-18.0); LYMPHOCYTES # (AUTO) 2.5 (1.0-3.2); LYMPHOCYTES % 30.2 % (18.0-39.1); MEAN CORPUSCULAR HEMOGLOBIN 32.2 pg (28-32); MEAN CORPUSCULAR HGB CONC 33.4 g/dL (31-35); MEAN CORPUSCULAR VOLUME 96.2 fL (81-99); MONOCYTES % 12.5 % (4.4-11.3); NEUTROPHILS # (AUTO) 4.5 (2.1-6.9); NEUTROPHILS % 54.8 % (38.7-80.0); PLATELET COUNT 230 x10e3/uL (140-360); RED CELL DISTRIBUTION WIDTH 12.7 % (11.7-14.4)
[2019-07-09 06:04] LABS: ANION GAP 10.9 mmol/L (8-16); BLOOD UREA NITROGEN 13 mg/dL (7-26); BUN/CREATININE RATIO 20 (6-25); CALCIUM 8.6 mg/dL (8.4-10.2); CARBON DIOXIDE 30 mmol/L (22-29); CHLORIDE 103 mmol/L (98-107); CREATININE, SERUM 0.64 mg/dL (0.72-1.25); EST GLOMERULAR FILTRATION RATE > 60 ML/MIN (60-); GLUCOSE 92 mg/dL (74-118); POTASSIUM 3.9 mmol/L (3.5-5.1); SODIUM 140 mmol/L (136-145)
--- NOTE | 2019-07-09 07:00 | NUR ---
RECEIVED PATIENT AWAKE RESTING IN BED. NO S/S OF DISTRESS. BED LOW, WHEELS LOCKED, SIDE RAILS X2. CALL LIGHT IN REACH WILL CONTINUE TO MONITOR PATIENT.
[2019-07-09 08:09] VITALS: BP 107/61
[2019-07-09] MEDS: FAMOTIDINE 20 MG TAB PO SCH (08:19)
[2019-07-09] MEDS: DOCUSATE SODIUM 100 MG CAP PO SCH (08:19)
[2019-07-09 09:11] VITALS: BP 107/61
[2019-07-09] MEDS ORDERED: MORPHINE SULFATE 2 MG/ML SYR 1ML IV SCH (09:30)
--- NOTE | 2019-07-09 10:09 | Diagnostic Imaging Report ---
EXAMINATION: CHEST SINGLE (PORTABLE) INDICATION: Pneumothorax COMPARISON: Multiple prior chest radiographs most recently 07/07/2019 FINDINGS: LINES/TUBES:Right IJ central venous catheter terminates at the superior cavoatrial junction. Left apical chest tube unchanged. LUNGS:The lungs are hyperinflated. No focal consolidation or pulmonary edema. PLEURA:No pleural effusion or pneumothorax. MEDIASTINUM:The cardiomediastinal silhouette appears unchanged in size and shape. BONES/SOFT TISSUES:No acute osseous injury. ABDOMEN:No free air under the diaphragm. IMPRESSION: Left chest tube in unchanged position. No pneumothorax. Signed by: Vivian Byrd MD on 07/09/2019 10:05 AM
--- NOTE | 2019-07-09 10:54 | Diagnostic Imaging Report ---
EXAMINATION: CHEST SINGLE (PORTABLE) INDICATION: Chest tube removal COMPARISON: Chest radiograph of earlier the same day FINDINGS: LINES/TUBES: Right IJ central venous catheter terminates at the superior cavoatrial junction. Interval removal of left chest tube. No pneumothorax. LUNGS:The lungs are hyperinflated. No focal pneumonia or pulmonary edema. PLEURA:No pleural effusion or pneumothorax. MEDIASTINUM:The cardiomediastinal silhouette appears normal in size and shape. BONES/SOFT TISSUES:No acute osseous injury. ABDOMEN:No free air under the diaphragm. IMPRESSION: Interval removal of left chest tube. No pneumothorax. Signed by: Vivian Byrd MD on 07/09/2019 10:51 AM
--- NOTE | 2019-07-09 11:08 | NUR ---
Pt. expressed no spiritual or emotional concerns at this time. Pt expressed appreciation for visit. [employer] provided hospitality and information on how to reach candle extrusion machine operator, if needed. OSCAR MURILLO Manager [employer] Spiritual Care Department O: [phone]
--- NOTE | 2019-07-09 11:21 | NUR ---
WOUND CARE CONSULT FOR 64 YO MALE HX OF EMPHYSEMA, PNEUMOTHORAX REDD 17 ON CONSERVATIVE PUP STATUS AND INTERVENTIONS AND VISCO MATTRESS LABS: WBC-8.29 HGB_11.9 GLUCOSE-92 SKIN ASSESSMENT COMPLETE PATIENT PRESENTS WITH HEALING PARTIAL THICKNESS WOUND TO LEFT LOWER LEG R/T PET DOG THAT SCRATCHED HIM RECOMMENDATIONS: NURSING TO CONTINUE TO MAINTAIN CONSERVATIVE PUP STATUS AND INTERVENTIONS AND VISCO MATTRESS NURSING TO CONTINUE TO ASSIST PATIENT OUT OF BED FOR MEALS AND MUCH TOLERATED NURSING TO CONTINUE TO ASSIST PATIENT NEEDED WITH MEALS AND NUTRITIONAL SUPPLEMENTS TO ENSURE PROPER REQUIREMENTS FOR HEALING NURSING TO CONTINUE TO OFFLOAD FEET AND HEELS NEEDED WITH PILLOW SUSPENSION WHEN IN BED NURSING TO CLEAN HEALING LEFT LOWER LEG SCRATCH WITH NORMAL SALINE DAILY AND LEAVE OPEN TO AIR RECONSULT WOUND CARE IF NEEDED ANY FURTHER IN THE FUTURE Addendum: 07/09/19 at 1128 by Francesco Scott RN Amended: Links added.
[2019-07-09 11:30] VITALS: BP 103/64
[2019-07-09] MEDS ORDERED: ONDANSETRON HCL 4 MG ORAL DISINTEGRATING TAB PO PRN (12:00)
[2019-07-09] MEDS ORDERED: TYLENOL WITH C1 EACH PO (13:15)
--- NOTE | 2019-07-09 13:38 | NUR ---
CALL TO PT'S ROOM; NO ANSWER. CALL TO , [facility] @ [phone]. PT'S CELL [phone]. DISCUSSED CHOICE FOR HH. CHOSE [facility] AND [facility]. CALL TO THE PT'S CELL TO INFORM OF HH ORDER AND 'S CHOICES. STATES OK W HIM. REFERRAL FAXED TO [facility] @ OFF: [phone] / FAX: [phone]
--- NOTE | 2019-07-09 13:40 | Progress Note ---
DATE: SUBJECTIVE: The patient is afebrile. Chest tube was removed today. He feels better. He has occasional pain. PHYSICAL EXAMINATION: VITAL SIGNS: Stable. HEENT: Shows no facial swelling or erythema. CARDIAC: Reveals regular rate and rhythm with normal S1 and S2. LUNGS: Auscultation of lungs reveals rhonchorous breath sounds bilaterally. There is no wheezing. ABDOMEN: Soft, nontender. There is no rebound or guarding. EXTREMITIES: Show no leg edema or calf tenderness. IMPRESSION: 1. Pneumothorax secondary to bullous emphysema. 2. Chronic obstructive pulmonary disease. 3. Multiple sclerosis. 4. Benign prostatic hypertrophy. PLAN: 1. Discharged home. 2. Follow up with Dr. Crawford in 2 weeks. 3. Tylenol No.3 as needed for pain. Addy Crawford MD [facility] /[id number]
--- NOTE | 2019-07-09 13:43 | NUR ---
HOME HEALTH DISCHARGE NOTE PATIENT ADDRESS WHERE SERVICE WILL BE RECEIVED: [address] [place] [address] PATIENT CONTACT NUMBER: [phone] NAME OF HOME HEALTH COMPANY: [facility]. TELEPHONE/FAX NUMBER OF COMPANY: OFF: [phone] /FAX: [phone] SERVICES TO RECEIVE: SKILLED NURSE EVALUATE AND TREAT, PHYSICAL THERAPY TO EVALUATE AND TREAT ANTICIPATED DATE SERVICES WILL BEGIN: 07/10/2019 Please call the company above if you have not received a call to schedule a home visit within 24 hours of discharge.
--- NOTE | 2019-07-09 14:05 | NUR ---
REMOVED PATIENTS IJ AND PERIPHERAL CATHETER. CATHETER TIPS INTACT AND PRESSURE DRESSING APPLIED.
--- NOTE | 2019-07-09 14:30 | NUR ---
PATIENT DISCHARGED FROM FACILITY. PATIENT GATHERED ALL PERSONAL BELONGINGS, DISCHARGE INSTRUCTIONS, AND FOLLOW UP INFORMATION. PATIENT LEFT UNIT VIA WHEELCHAIR AND WENT HOME VIA PRIVATE AUTO. NO S/S OF DISTRESS WHEN LEAVING FACILITY.
--- NOTE | 2019-07-09 14:41 | Progress Note ---
DATE: 07/09/2019 SUBJECTIVE: Recurrent left pneumothorax. The patient is breathing comfortably. Chest x-ray from this morning shows no pneumothorax. No air leak in the Pleur-evac. Wound is well healed. Chest tube discontinued. Portable chest x-ray ordered. IMPRESSION: Doing well without recurrence of pneumothorax. Okay for discharge soon. MD ELISE Siddiqi/ANA ROSA /[id number]
--- NOTE | 2019-07-10 19:01 | Discharge Summary ---
ADMISSION DIAGNOSES: 1. Recurrent left pneumothorax, secondary to a bullous emphysema. 2. Multiple sclerosis. DISCHARGE DIAGNOSES: 1. Recurrent left pneumothorax, secondary to a bullous emphysema. 2. Multiple sclerosis. HISTORY: 1. Multiple sclerosis. 2. Bolus emphysema. SURGICAL HISTORY: Prostate surgery. FAMILY HISTORY: The patient's sister and dad had cancer. SOCIAL HISTORY: The patient admits to smoking 1 to 2 packs of cigarettes a day. HOSPITAL COURSE: A 64-year-old male admits with complaints of recurrent left-sided chest pain and shortness of breath. He was discharged home after few days, status post chest tube insertion and removal for large left pneumothorax. He was home for 1 to 2 days before the symptoms recur. On admission, chest x-ray showed recurrent pneumothorax. He had a chest tube placed to 20 mg of mercury suction. Pulmonology and CV surgery were consulted. The patient was taken to the OR for thoracoscopic lung resection of the left lung blebs and mechanical pleurodesis. The patient tolerated the procedure well. Chest tube was changed from suction to water-seal and then removed per CV surgery. The patient will discharge home and follow up with CV surgery in about 3 weeks. The patient understands discharge instructions and agrees to plan. Vital signs are stable. The patient is afebrile. Dictated by Koki Vital NP MD CHERRI Whitt/[facility] /[id number]
== END 2019-07-09 14:30 | disposition home health service (06) | DRG 165 ==
LOC: MED/SURG3 12:53 → ICU 07-05 11:29 → MED/SURG 07-06 16:29
PROVIDERS: ADMIT Internal Medicine; ATTEND Internal Medicine
PROC: 0W9B30Z Drainage of Left Pleural Cavity with Drainage Device, Percutaneous Approach (ICD-10-PCS; principal; 2019-07-03)
PROC: 0BT Respiratory System, Resection (ICD-10-PCS; 2019-07-05)
PROC: 0B5P4ZZ Destruction of Left Pleura, Percutaneous Endoscopic Approach (ICD-10-PCS; 2019-07-05)
DX: J93.83 Other pneumothorax (principal); J43.9 Emphysema, unspecified; G35 Multiple sclerosis; F17.200 Nicotine dependence, unspecified, uncomplicated; N40.0 Benign prostatic hyperplasia without lower urinary tract symptoms; G47.00 Insomnia, unspecified; R26.9 Unspecified abnormalities of gait and mobility
CPT/HCPCS: 32557; 36415; 71045; 71046; 71250; 74470; 80048; 80053; 83735; 83880; 85025; 85610; 85730; 86850; 86900; 88307; 97139; 99251; C1713; C1729; C1769; J0456; J1100; J2001; J2250; J2270; J2405; J3010; J7050